=== PATIENT | male | born 1995 | race Caucasian/White ===

== ENCOUNTER → 2017-07-28 | Outpatient (CLI) | payer OTHER | LOC: LAB 14:49 | PROVIDERS: ATTEND Internal Medicine | DX: R19.7 Diarrhea, unspecified (principal); R63.4 Abnormal weight loss | CPT/HCPCS: 87045; 87046; 87324; 87328; 87329; 87449 ==

== ENCOUNTER 2017-08-23 09:15 | Outpatient (CLI) | payer OTHER ==
[~2017-08-23] VITALS: Ht 177.8 cm; Wt 59.0 kg
[2017-08-23] MEDS ORDERED: METO-387 PO (09:37)
== END 2017-08-23 09:44 ==
LOC: PREOP 09:15
PROVIDERS: ATTEND Internal Medicine
DX: Z01.818 Encounter for other preprocedural examination (principal); R19.7 Diarrhea, unspecified; R63.4 Abnormal weight loss; K62.5 Hemorrhage of anus and rectum

== ENCOUNTER 2017-08-24 09:01 | Day surgery (SDC) | payer OTHER ==
[~2017-08-24] VITALS: Ht 177.8 cm; Wt 59.0 kg
[~2017-08-24 09:01] MED LIST: METO-387 PO
[2017-08-24] MEDS ORDERED: 1/2 NS IV SOLUTION 1,000 ML IV STA (09:07)
[2017-08-24] MEDS ORDERED: MIDAZOLAM 2 MG/2 ML (VERSED) VIAL IVP PRN (09:15)
[2017-08-24] MEDS ORDERED: LIDOCAINE JELLY 2% (XYLOCAINE) 5 ML TUBE MM PRN (09:15)
[2017-08-24 09:22] VITALS: BP 115/94
[2017-08-24] MEDS ORDERED: LIDOCAINE JELLY 2% (XYLOCAINE) 5 ML TUBE ONE (10:26)
[2017-08-24] MEDS ORDERED: MIDAZOLAM 2 MG/2 ML (VERSED) VIAL ONE ×4 (10:27)
[2017-08-24] MEDS ORDERED: fentaNYL INJECTION 100 MCG/2 ML AMP ONE ×2 (10:27)
[2017-08-24] MEDS: fentaNYL INJECTION 100 MCG/2 ML AMP IVP PRN ×3 (10:52→11:08)
[2017-08-24 12:00] VITALS: BP 115/72
[2017-08-24 12:40] VITALS: BP 114/74
[2017-08-24 12:50] VITALS: BP 114/74
--- NOTE | 2017-08-24 21:47 | OPERATIVE REPORT ---
DATE OF SERVICE: 08/24/2017 COLONOSCOPY SUMMARY INDICATION FOR THE PROCEDURE: Diarrhea, weight loss and intermittent rectal bleeding. Prior to undergoing colonoscopy, a digital rectal evaluation was performed. Anal sphincter tone was normal and the perianal reflexes intact. The prostate was just borderline enlarged not for age with mild tenderness to digital inspection. No nodularity was noted. Digital inspection was otherwise unremarkable with normal consistency. The colonoscope was then inserted in the rectum under direct visualization and advanced to the cecum. The terminal ileum was intubated and distal several centimeters of terminal ileum were inspected. The patient tolerated the procedure well and did not have an irritable bowel type response to air insufflation or colonic manipulation. FINDINGS: The rectum, sigmoid colon, descending colon, splenic flexure, transverse colon, ascending colon and cecum as well as distal several centimeters of terminal ileum were unremarkable with no evidence for colitis or terminal ileitis. ASSESSMENT AND PLAN: 1. Normal colonoscopy of the cecum including distal terminal ileum. 2. This likely Excludes underlying inflammatory bowel disease. A biopsy was obtained from the rectum to rule out microscopic colitis. After discussion with the patient, I will be sending him down to [facility] to obtain a celiac panel as there was apparently some family history of celiac disease. In addition check HIV status. He reports that he is sexually active, denying any past or ongoing history of sex with men. In the interim, it was advised that he initiate fiber in the form of Citrucel or FiberCon daily. I thank you for the referral of this pleasant gentleman. Job ID: [id number] DocumentID: [id number] Dictated Date: 08/24/2017 12:27:31 Passenger Locomotive Engineer Date: 08/24/2017 21:46:51 Dictated By: RUPAL MENARD MD [facility]
== END 2017-08-24 12:50 | disposition home or self-care (01) ==
LOC: ENDO 09:01
PROVIDERS: ATTEND Internal Medicine
DX: R19.7 Diarrhea, unspecified (principal); K62.5 Hemorrhage of anus and rectum; R63.4 Abnormal weight loss; Z83.79 Family history of other diseases of the digestive system; R00.0 Tachycardia, unspecified; Z79.899 Other long term (current) drug therapy

== ENCOUNTER 2018-08-12 09:19 | Outpatient (RCR) | payer BC, OTHER ==
[2018-08-19] MEDS ORDERED: TR1C15 TP (07:36)
[2018-10-18] MEDS ORDERED: METO-387 PO (07:22)
== END 2018-11-10 | disposition home or self-care (01) ==
LOC: CARD 09:19
PROVIDERS: ATTEND Internal Medicine Interventional Cardiology
DX: I49.1 Atrial premature depolarization (principal); I47.1 Supraventricular tachycardia; I49.3 Ventricular premature depolarization
CPT/HCPCS: 93270

== ENCOUNTER 2018-08-14 05:35 | Outpatient (CLI) | payer BC ==
[~2018-08-14] VITALS: Ht 177.8 cm; Wt 60.3 kg
== END 2018-08-14 13:39 | disposition home or self-care (01) ==
LOC: PREOP 05:35
PROVIDERS: ATTEND Internal Medicine Interventional Cardiology
DX: Z01.818 Encounter for other preprocedural examination (principal)

== ENCOUNTER 2018-08-19 07:10 | Day surgery (SDC) | payer BC, OTHER ==
[~2018-08-19] VITALS: Ht 177.8 cm; Wt 59.0 kg
[2018-08-19] VITALS (12 sets, daily range): BP systolic 112–145; BP diastolic 61–92
[2018-08-19] MEDS ORDERED: NS IV 1000 ML 1,000 ML IV SCH ×2 (07:13→10:47)
[2018-08-19] MEDS ORDERED: NS IV 1000 ML 3,000 ML ONE (07:13)
[2018-08-19] MEDS ORDERED: LIDOCAINE 1% INJ 20 ML 20 ML VIAL ONE (07:13)
[2018-08-19] MEDS ORDERED: HEParin 1000 UNIT/ML (10ML VIAL) FOR BOLUS ONE (07:13)
--- OUTSIDE RECORDS SUMMARY | 2018-08-19 07:14 | XMS REPORT | Continuity of Care Document ---
Author Author [facility] Address [facility] [address] [place] [address] Phone Unavailable Support Name Relationship Address Phone VELMA POWERS Caregiver [address] [address] ERNESTINE MANSFIELD DO Caregiver [address] [place], [place] [address] RIGOBERTO GUZMAN Next Of Kin [address] [place] [address] Insurance Providers Payer Name Policy Number Subscriber Name Relationship Wc Other [id number] Kelsie Do 16 Self / Same As Patient Blue Cross/Blue Shield [id number] Nayely Guzman 17 Child Advance Directives Directive Response Recorded Date/Time Do you have an Advanced Directive? No 01/03/00 7:20pm Advance Directives No 01/03/12 10:52am Living Will No 01/03/12 10:52am Health Care Proxy No 11/30/15 11:04am Power of Green Chain Off Bearer for Health Care No 01/03/12 10:52am Organ, Tissue, or Eye Donor No 01/03/12 10:52am Do you have a signed organ donor card? No 01/03/00 7:20pm Problems Active Problems Medical Problem Onset Date Status Scalp laceration Unknown Acute Ureterolithiasis Unknown Acute Medications Current Home Medications Medication Dose Units Route Directions Days/Qty Instructions Start Date No Known Medications 08/10/14 Oxycodone Hcl/Acetaminophen* 1 Tab 1 Ea Oral Every 4-6 Hrs As Needed Pain 20 08/10/14 Ondansetron* 4 Mg/Tab 4 Mg Oral Every 6 Hours for Nausea 10 08/10/14 Ibuprofen 600 Mg 600 Mg Oral Every 8 Hours As Needed as needed for Pain 10 08/10/14 Social History Social History Problem Response Recorded Date/Time Smoking Status Never smoker 11/23/2015 1:53pm Query Response Start Date Stop Date Smoking Status Never smoker Hospital Discharge Instructions No hospital discharge instructions. Plan of Care Discharge Date 11/30/15 11:25am Disposition 01 HOME, CARE HOME,ASSISTED LIVING Prescriptions See Medication Section Functional Status No functional status results. Allergies, Adverse Reactions, Alerts Allergen Type Severity Reaction Status Last Updated SULFA Allergy Unknown Active 08/10/14 Immunizations Name Given Type Hx Diphtheria, Pertussis, Tetanus Vaccination Up To Date Historical Hx Influenza Vaccination No Historical Hx Pneumococcal Vaccination No Historical Vital Signs Acute Vital Signs Vital Response Date/Time Temperature (Fahrenheit) 98.3 degrees F (97.6 - 99.5) 11/30/2015 11:12am Temperature Source Temporal Artery 11/30/2015 11:12am Pulse Rate (adult) 74 bpm (60 - 90) 11/30/2015 11:12am Respiratory Rate 16 bpm (12 - 24) 11/30/2015 11:12am Blood Pressure 121/70 mm Hg 11/30/2015 11:12am O2 Sat by Pulse Oximetry 96 % (90 - 100) 11/30/2015 11:12am Oxygen Delivery Method 11/30/2015 11:12am Results No known relevant diagnostic tests, laboratory data and/or discharge summary. Procedures No known history of procedures. Encounters Encounter Location Arrival/Admit Date Discharge/Depart Date Attending Provider Departed Emergency Room [place] 11/30/15 11:09am 11/30/15 11:25am ERNESTINE MANSFIELD DO Departed Emergency Room [place] 11/23/15 1:35pm 11/23/15 2:21pm LIZBETH FISHER MD
--- OUTSIDE RECORDS SUMMARY | 2018-08-19 07:14 | XMS REPORT | Continuity of Care Document ---
Author Author [facility] Address [facility] [address] [place] [address] Phone Unavailable Support Name Relationship Address Phone HAIJOHNVELMA Caregiver [address] [address] LIZBETH FISHER MD Caregiver [address] [place] [address] Unavailable RIGOBERTO GUZMAN Next Of Kin [address] [place] [address] Insurance Providers Payer Name Policy Number Subscriber Name Relationship Wc Other [id number] Kelsie Do 16 Self / Same As Patient Blue Cross/Blue Shield [id number] Nayely Guzman 17 Child Advance Directives Directive Response Recorded Date/Time Do you have an Advanced Directive? No 01/03/00 7:20pm Advance Directives No 01/03/12 10:52am Living Will No 01/03/12 10:52am Health Care Proxy No 11/23/15 1:34pm Power of Beef Specialist for Health Care No 01/03/12 10:52am Organ, Tissue, or Eye Donor No 01/03/12 10:52am Do you have a signed organ donor card? No 01/03/00 7:20pm Chief Complaint and Reason for Visit Chief Complaint HIT IN HEAD/HIT HEAD Reason for Visit Scalp laceration Problems Active Problems Medical Problem Onset Date [...] Date/Time Smoking Status Never smoker 11/23/2015 1:53pm Alcohol Use none 11/23/2015 1:53pm Query Response Start Date Stop Date Smoking Status Never smoker Hospital Discharge Instructions No hospital discharge instructions. Plan of Care Discharge Date 11/23/15 2:21pm Condition at Discharge Stable Instructions/Education Provided Laceration (ED) Head Injury (ED) Prescriptions See Medication Section Referrals VELMA POWERS - Additional Instructions/Education Casey out in about 7 days Functional Status Query Response Date Recorded Vivek Coma Scale Total 15 November 23, 2015 2:20pm Patient Behavior Cooperative Appropriate November 23, 2015 2:20pm Allergies, Adverse Reactions, Alerts Allergen Type Severity Reaction Status Last Updated SULFA Allergy Unknown Active 08/10/14 Immunizations Name Given Type Hx Diphtheria, Pertussis, Tetanus Vaccination Up To Date Historical Hx Influenza Vaccination No Historical Hx Pneumococcal Vaccination No Historical Vital Signs Acute Vital Signs Vital Response Date/Time Temperature (Fahrenheit) 98.5 degrees F (97.6 - 99.5) 11/23/2015 2:11pm Temperature Source Temporal Artery 11/23/2015 2:11pm Pulse Rate (adult) 68 bpm (60 - 90) 11/23/2015 2:11pm Respiratory Rate 18 bpm (12 - 24) 11/23/2015 2:11pm Blood Pressure 130/70 mm Hg 11/23/2015 2:11pm O2 Sat by Pulse Oximetry 97 % (90 - 100) 11/23/2015 2:11pm Oxygen Delivery Method 11/23/2015 2:11pm Height 5 ft 10 in Weight 141 lb Body Mass Index 20.0 kg/m^2 Results No known relevant diagnostic tests, laboratory data and/or discharge summary. Procedures No known history of procedures. Encounters Encounter Location Arrival/Admit Date Discharge/Depart Date Attending Provider Departed Emergency Room [facility] 11/23/15 1:35pm 11/23/15 2:21pm LIZBETH FISHER MD Recent Diagnosis
--- OUTSIDE RECORDS SUMMARY | 2018-08-19 07:14 | XMS REPORT | Continuity of Care Document ---
Author Author [facility] Organization [facility] Address [facility] [address] [place] [address] Phone Unavailable Support Name Relationship Address Phone HAIJOHNVELMA Caregiver [address] [place] [address] BLAIRE WHITFIELD MD Caregiver [address] [place] [address] RIGOBERTO GUZMAN Next Of Kin [address] [place] [address] Insurance Providers Payer Name Policy Number Subscriber Name Relationship Blue Cross/Blue Shield [id number] Nayely Guzman 17 Child Advance Directives Directive Response Recorded Date/Time Do you have an Advanced Directive? No 01/03/00 7:20pm Advance Directives No 01/03/12 10:52am Living Will No 01/03/12 10:52am Health Care Proxy No 08/10/14 11:14am Power of Photovoltaic Fabrication Technician for Health Care No 01/03/12 10:52am Organ, Tissue, or Eye Donor No 01/03/12 10:52am Do you have a signed organ donor card? No 01/03/00 7:20pm Problems Medical Problems Problem Onset Date Status Ureterolithiasis Unknown Active Medications Medication Dose Route Sig Days/Qty Instructions Order Date Discontinued Date Status No Known Medications 08/10/14 Active Oxycodone Hcl/Acetaminophen* 1 Ea PO EVERY 4-6 HRS NEEDED PAIN 20 Qty 08/10/14 Active Ondansetron* 4 Mg PO EVERY 6 HOURS For NAUSEA 10 Qty 08/10/14 Active Ibuprofen 600 Mg PO EVERY 8 HOURS NEEDED PRN PAIN 10 Qty 08/10/14 Active Social History Social History Problem Response Recorded Date/Time Employment Student 08/10/2014 11:52am Hospital Discharge Instructions No hospital discharge instructions. Plan of Care No plan of care. Functional Status Query Response Date Recorded [place] Coma Scale Total 15 August 10, 2014 11:15am Patient Behavior Cooperative Appropriate August 10, 2014 11:15am Allergies, Adverse Reactions, Alerts Allergen Type Severity Reaction Status Last Updated SULFA Allergy Unknown Active 08/10/14 Immunizations Name Given Type Hx Diphtheria, Pertussis, Tetanus Vaccination Up To Date Historical Hx Influenza Vaccination No Historical Hx Pneumococcal Vaccination No Historical Vital Signs Acute Vital Signs Vital Response Date/Time Temperature (Fahrenheit) 99.3 degrees F (97.6 - 99.5) Temperature Source Temporal Artery Pulse Rate (adult) 74 bpm (60 - 90) Respiratory Rate 20 bpm (12 - 24) Blood Pressure 114/64 mm Hg O2 Sat by Pulse Oximetry 96 % (90 - 100) Oxygen Delivery Method Pain Intensity 1 Pain Location Body Site Modifier Pain Description Pain Duration 2 DAYS Height 5 ft 9 in Weight 143 lb Body Mass Index 21.0 kg/m^2 Results Test Source Date Result Interp. Ref. Range Comments Urine Bacteria August 10, 2014 12:00am Trace H - Urine obtained via URINE,RANDOM Urine Squamous Epithelial Cells August 10, 2014 12:00am 0-1 /hpf H - Urine obtained via URINE,[facility]OM Urine WBC August 10, 2014 12:00am 1-2 /hpf - Urine obtained via URINE, [facility] Urine RBC August 10, 2014 12:00am 30-49 /hpf H - Urine obtained via URINE,[facility] Urine Leukocyte Esterase August 10, 2014 12:00am Negative - Urine obtained via URINE,[facility]OM Urine Nitrate August 10, 2014 12:00am Negative - Urine obtained via URINE,[facility]OM Urine Urobilinogen August 10, 2014 12:00am 0.2 mg/dl E.U./dL - Urine obtained via URINE,[facility] Urine Protein August 10, 2014 12:00am Negative mg/dL - Urine obtained via URINE,[facility] Urine pH August 10, 2014 12:00am 6.0 - Urine obtained via URINE,[facility]OM Urine Occult Blood August 10, 2014 12:00am 3+ (large) H - URINE CULTURE ORDERED PER MEDICAL STAFF-APPROVED PROTOCOLFOR LAB. Urine Specific [place] August 10, 2014 12:00am 1.025 N 1.010-1.025 Urine obtained via URINE,[facility]OM Urine Ketones August 10, 2014 12:00am Negative mg/dL - Urine obtained via URINE,[facility]OM Urine Bilirubin August 10, 2014 12:00am Negative - Urine obtained via URINE,[facility]OM Urine Glucose (UA) August 10, 2014 12:00am Negative mg/dL - Urine obtained via URINE,[facility] Urine Appearance August 10, 2014 12:00am Clear - Urine obtained via URINE,[facility] Urine Color August 10, 2014 12:00am Yellow - Urine obtained via URINE, [facility] Vitamin B12 Level August 01, 2014 1:40pm 659 pg/mL - Performed at: [address] [id number] [place] Registered Nurse Rn: PLACIDO Santiago MD, Phone: [phone] Thyroid Stimulating Immunoglobulin August 01, 2014 1:40pm 21 - Vitamin D 25-Hydroxy August 01, 2014 1:40pm 28.5 ng/mL L - Vitamin D deficiency has been defined by the [place] of[employer] and an Endocrine Society practice guideline as a level of serum 25-OH vitamin D less than 20 ng/mL (1,2). The Endocrine Society went on to further define vitamin D insufficiency as a level between 21 and 29 ng/mL (2). 1. IOM ([place] of [employer]). 2010. Dietary reference intakes for calcium and D. [place]: The National Academies Press. 2. Oumar MF, Crescencio PETER, Abigail UGARTE, et al. Evaluation, treatment, and prevention of vitamin D deficiency: an Endocrine Society clinical practice guideline. JCEM. 2010; 96(7):1911-30. Performed at: [address] [id number] [place] Registered Nurse Rn: PLACIDO Santiago MD, Phone: [phone] Thyroid Peroxidase Antibodies August 01, 2014 1:40pm 6 IU/mL - Performed at: [place] [address], [place], [place] [id number] [facility] Registered Nurse Rn: PLACIDO Santiago MD, Phone: [phone] Atypical Lymphocytes August 01, 2014 1:40pm 2 % H 0-0 Basophils (Manual) August 01, 2014 1:40pm 1.0 % N 0-1 Eosinophils (Manual) August 01, 2014 1:40pm 5.0 % H 0-3 Monocytes (Manual) August 01, 2014 1:40pm 9.0 % N 4-10 Lymphocytes (Manual) August 01, 2014 1:40pm 30.0 % N 25-40 Band Neutrophils August 01, 2014 1:40pm 4.0 % N 0-5 Neutrophils August 01, 2014 1:40pm 49.0 % L 50-65 Glomerular Filtration Rate Calc August 01, 2014 1:40pm 101.3 mL/min N 60.0-128.0 Thyroid Stimulating Hormone (TSH) August 01, 2014 1:40pm 1.39 uIU/ml N 0.36-3.74 Thyroxine (T4) August 01, 2014 1:40pm 7.2 UG/DL N 4.5-12.1 Triiodothyronine (T3) Uptake August 01, 2014 1:40pm 33.0 % N 33.0- 40.0 Free Thyroxine (T4) Calculated August 01, 2014 1:40pm 0.99 ng/dL N 0.76-1.46 Total Alkaline Phosphatase August 01, 2014 1:40pm 105 U/L N 50-136 Alanine Aminotransferase (ALT/SGPT) August 01, 2014 1:40pm 20 U/L N 12 -78 Aspartate Amino Transf (AST/SGOT) August 01, 2014 1:40pm 10 U/L L 15- 37 Total Bilirubin August 01, 2014 1:40pm 0.50 mg/dL N 0.00-1.00 Albumin August 01, 2014 1:40pm 4.2 gm/dL N 3.4-5.0 Total Protein August 01, 2014 1:40pm 7.3 gm/dL N 6.4-8.2 Calcium Level August 01, 2014 1:40pm 8.9 mg/dL N 8.8-10.5 Carbon Dioxide Level August 01, 2014 1:40pm 31.7 mEq/L N 21-32 Chloride Level August 01, 2014 1:40pm 103 mEq/L N 98-107 Potassium Level August 01, 2014 1:40pm 4.3 mEq/L N 3.5-5.0 Sodium Level August 01, 2014 1:40pm 141 mEq/L N 136-145 Creatinine August 01, 2014 1:40pm 1.0 mg/dL N 0.8-1.3 Blood Urea Nitrogen August 01, 2014 1:40pm 10 mg/dL N 7-18 Random Glucose August 01, 2014 1:40pm 87 mg/dL N 70-110 Monoscreen August 01, 2014 1:40pm Negative - Basophils # (Auto) August 01, 2014 1:40pm 0.0 K/uL N 0.0-0.2 Basophils (%) (Auto) August 01, 2014 1:40pm 1.1 % H 0.0-1.0 Eosinophils # (Auto) August 01, 2014 1:40pm 0.2 K/uL N 0.0-0.7 Eosinophils (%) (Auto) August 01, 2014 1:40pm 4.1 % H 0.0-2.0 Hematocrit August 01, 2014 1:40pm 48.3 % N 42.0-52.0 Hemoglobin August 01, 2014 1:40pm 15.7 gm/dL N 14.0-18.0 Lymphocytes # (Auto) August 01, 2014 1:40pm 1.2 K/uL N 1.2-3.4 Lymphocytes (%) (Auto) August 01, 2014 1:40pm 33.5 % N 20.5-51.1 Mean Corpuscular Hemoglobin August 01, 2014 1:40pm 27.4 pg N 27.0- 31.0 Mean Corpuscular Hemoglobin Concent August 01, 2014 1:40pm 32.5 g/dL N 30.0-37.0 Mean Corpuscular Volume August 01, 2014 1:40pm 84.3 fL N 80.0-96.1 Mean Platelet Volume August 01, 2014 1:40pm 7.4 fL N 7.4-10.4 Monocytes # (Auto) August 01, 2014 1:40pm 0.3 K/uL N 0.1-0.6 Monocytes (%) (Auto) August 01, 2014 1:40pm 7.9 % N 1.7-9.3 Neutrophils # (Auto) August 01, 2014 1:40pm 2.0 K/uL N 2.0-6.9 Neutrophils (%) (Auto) August 01, 2014 1:40pm 53.3 % N 42.2-75.2 Platelet Count August 01, 2014 1:40pm 225 K/uL N 130-400 Red Blood Count August 01, 2014 1:40pm 5.73 M/uL N 4.70-6.10 Red Cell Distribution Width August 01, 2014 1:40pm 10.4 % L 11.5-14.5 White Blood Count August 01, 2014 1:40pm 3.7 K/uL L 4.8-10.8 Urine Culture Urine,Random August 10, 2014 12:00am Pending Procedures Procedure Status Date Provider(s) Computed tomography of abdomen and pelvis without contrast completed BLAIRE WHITFIELD MD Encounters Encounter Location Date/Time Departed Emergency Room [facility] 08/10/14 11:14am Registered Clinic [facility] 08/01/14 1:33pm Recent Diagnosis
[2018-08-19] MEDS ORDERED: ISOPROTERENOL 0.2 MG/100 ML D5W IV ONE (07:15)
--- OUTSIDE RECORDS SUMMARY | 2018-08-19 07:15 | XMS REPORT | Continuity of Care Document ---
Author Author [facility] Organization [facility] Address Unknown Phone Unavailable Allergies Active Description Code Type Severity Reaction Onset Reported/Identified Relationship to Patient Clinical Status Yes Sulfa (Sulfonamide Antibiotics) [id number] Drug Allergy Unknown N/A 2017 Medications There is no data. Problems Date Dx Coded Attending Type Code Diagnosis Diagnosed By 05/12/2015 LUKE NAGEL MD Ot I49.9 07/09/2015 MIKHAIL BOWLING SHAREPOINT DEVELOPER-STDNT Ot R00.0 08/18/2015 LUKE NAGEL MD Ot I49.9 08/18/2015 MIKHAIL BOWLING SHAREPOINT DEVELOPER-STDNT Ot R00.0 08/31/2015 LUKE NAGEL MD Ot I49.9 08/31/2015 MIKHAIL BOWLING SHAREPOINT DEVELOPER-STDNT Ot R00.0 07/30/2017 LUKE NAGEL MD Ot R19.7 DIARRHEA, UNSPECIFIED 07/30/2017 LUKE NAGEL MD Ot R63.4 ABNORMAL WEIGHT LOSS 08/15/2017 LUKE NAGEL MD Ot R19.7 DIARRHEA, UNSPECIFIED 08/15/2017 LUKE NAGEL MD Ot R63.4 ABNORMAL WEIGHT LOSS 08/23/2017 RUPAL MENARD MD Ot K62.5 HEMORRHAGE OF ANUS AND RECTUM 08/23/2017 RUPAL MENARD MD Ot R19.7 DIARRHEA, UNSPECIFIED 08/23/2017 RUPAL MENARD MD Ot R63.4 ABNORMAL WEIGHT LOSS 08/23/2017 RUPAL MENARD MD Ot Z01.818 ENCOUNTER FOR OTHER PREPROCEDURAL EXAMIN 08/24/2017 RUPAL MENARD MD Ot K62.5 HEMORRHAGE OF ANUS AND RECTUM 08/24/2017 RUPAL MENARD MD Ot R00.0 TACHYCARDIA, UNSPECIFIED 08/24/2017 RUPAL MENARD MD Ot R19.7 DIARRHEA, UNSPECIFIED 08/24/2017 RUPAL MENARD MD Ot R63.4 ABNORMAL WEIGHT LOSS 08/24/2017 RUPAL MENARD MD Ot Z79.899 OTHER [facility] (CURRENT) DRUG THERAPY 08/24/2017 RUPAL MENARD MD Ot Z83.79 FAMILY HISTORY OF OTHER DISEASES OF THE 08/28/2017 RUPAL MENARD MD Ot K62.5 HEMORRHAGE OF ANUS AND RECTUM 08/28/2017 RUPAL MENARD MD Ot R00.0 TACHYCARDIA, UNSPECIFIED 08/28/2017 RUPAL MENARD MD Ot R19.7 DIARRHEA, UNSPECIFIED 08/28/2017 RUPAL MENARD MD Ot R63.4 ABNORMAL WEIGHT LOSS 08/28/2017 RUPAL MENARD MD Ot Z79.899 OTHER [employer] (CURRENT) DRUG THERAPY 08/28/2017 RUPAL MENARD MD Ot Z83.79 FAMILY HISTORY OF OTHER DISEASES OF THE 08/29/2017 RUPAL MENARD MD Ot K62.5 HEMORRHAGE OF ANUS AND RECTUM 08/29/2017 RUPAL MENARD MD Ot R19.7 DIARRHEA, UNSPECIFIED 08/29/2017 RUPAL MENARD MD Ot R63.4 ABNORMAL WEIGHT LOSS 08/29/2017 RUPAL MENARD MD Ot Z01.818 ENCOUNTER FOR OTHER PREPROCEDURAL EXAMIN 09/12/2017 RUPAL MENARD MD Ot K62.5 HEMORRHAGE OF ANUS AND RECTUM 09/12/2017 RUPAL MENARD MD Ot R00.0 TACHYCARDIA, UNSPECIFIED 09/12/2017 RUPAL MENARD MD Ot R19.7 DIARRHEA, UNSPECIFIED 09/12/2017 RUPAL MENARD MD Ot R63.4 ABNORMAL WEIGHT LOSS 09/12/2017 RUPLA MENARD MD Ot Z79.899 OTHER [facility] (CURRENT) DRUG THERAPY 09/12/2017 RUPAL MENARD MD Ot Z83.79 FAMILY HISTORY OF OTHER DISEASES OF THE 08/09/2018 SHONA GRACIA, LUKE Jaramillo Ot I49.9 CARDIAC ARRHYTHMIA, UNSPECIFIED 08/09/2018 MIKHAIL BOWLING SHAREPOINT DEVELOPER-STDNT Ot R00.0 TACHYCARDIA, UNSPECIFIED 08/14/2018 Ella GAO MD Ot Z01.818 ENCOUNTER FOR OTHER PREPROCEDURAL EXAMIN 08/15/2018 Ella GAO MD Ot Z01.818 ENCOUNTER FOR OTHER PREPROCEDURAL EXAMIN Procedures There is no data. Results There is no data. Encounters ACCT No. Visit Date/Time Discharge Status Pt. Type Provider Facility Loc./Unit Complaint [id number] 08/14/2018 05:35:00 08/14/2018 13:39:00 DIS Outpatient Ella GAO MD [facility] PREOP SYMPTOMATIC PSVT [id number] 08/12/2018 09:19:00 08/12/2018 23:59:59 CLS Outpatient Ella GAO MD [facility] CARD PAC [id number] 08/24/2017 09:01:00 08/24/2017 12:50:00 DIS Outpatient RUPAL MENARD MD [facility] ENDO DIARRHEA/WEIGHT LOSS/ RECTAL BLEEDING [id number] 08/23/2017 09:15:00 08/23/2017 09:44:00 DIS Outpatient RUPAL MENARD MD [facility] PREOP COLONOSCOPY [id number] 07/28/2017 14:49:00 07/28/2017 23:59:59 CLS Outpatient LUKE NAGEL MD [facility] LAB DIARRHEA [id number] 06/22/2015 11:35:00 06/22/2015 23:59:59 CLS Outpatient MIKHAIL BOWLING SHAREPOINT DEVELOPER-STDNT [facility] RAD TACHACARDIA [id number] 04/22/2015 08:01:00 04/22/2015 23:59:59 CLS Outpatient LUKE NAGEL MD [facility] CARD CARDIAC ARRHYTHMIA [id number] 08/19/2018 08:00:00 PEN Preadmit Ella GAO MD [facility] CATH SYMPTOMATIC PSVT [id number] 02/23/2014 11:23:26 Document Registration
[2018-08-19] MEDS ORDERED: proPOfol 200 MG/20 ML (DIPRIVAN) VIAL IV ONE (07:30)
[2018-08-19] MEDS ORDERED: ONDANSETRON 4 MG/2 ML (SDV) Z0FRAN ONE (07:30)
[2018-08-19] MEDS ORDERED: fentaNYL INJECTION 100 MCG/2 ML AMP ONE (07:30)
[2018-08-19] MEDS ORDERED: MIDAZOLAM 2 MG/2 ML (VERSED) VIAL ONE (07:30)
[2018-08-19 07:36] LABS: HEMOGLOBIN 15.3 G/DL (13.3-17.7); MEAN PLATELET VOLUME 9.7 FL (7.4-10.4); RED CELL DISTRIBUTION WIDTH 13.3 % (10.0-14.5); WHITE BLOOD COUNT 5.7 10^3/uL (4.3-11.0)
[2018-08-19] MEDS ORDERED: TR1C15 TP (07:36)
[2018-08-19 07:54] LABS: PROTHROMBIN TIME PATIENT 13.3 SEC (12.2-14.7)
[2018-08-19 07:59] LABS: ALANINE AMINOTRANSFERASE 12 U/L (0-55); ALBUMIN 4.8 GM/DL (3.2-4.5); ALKALINE PHOSPHATASE 55 U/L (40-136); BUN/CREATININE RATIO 9; CALCIUM 9.4 MG/DL (8.5-10.1); CARBON DIOXIDE 25 MMOL/L (21-32); CHLORIDE 104 MMOL/L (98-107); CREATININE SERUM 0.85 MG/DL (0.60-1.30); GFR ESTIMATED > 60; GLUCOSE 86 MG/DL (70-105); POTASSIUM 3.5 MMOL/L (3.6-5.0); SODIUM 140 MMOL/L (135-145); TOTAL PROTEIN 6.9 GM/DL (6.4-8.2)
[2018-08-19] MEDS ORDERED: FLU QUADRIvalent (5+ YOA) 2018-2019 (AFLURIA) 0.5 ML IM ONE (08:15)
[2018-08-19] MEDS ORDERED: SEVOFLURANE (ULTANE) 15 ML INHAL SOLN ONE (10:37)
--- NOTE | 2018-08-19 10:47 | Cardiac Procedure Note-CS/ASA ---
Pre-Procedure Note Pre-Op Procedure Note H&P Reviewed The H&P was reviewed, patient examined and no changes noted. Date H&P Reviewed: Aug 19, 2018 Time H&P Reviewed: 08:15 Conscious Sedation Pre-Proced Time 08:15 ASA Score 3 For ASA 3 and 4: Consider anesthesia and medical clearance. Also, for patients with a history of failed moderate sedation consider anesthesia. Airway Lungs Heart ASA score ASA 1: a normal healthy patient ASA 2: a patient with a mild systemic disease (mid diabetes, controlled hypertension, obesity ASA 3: a patient with a severe systemic disease that limits activity (angina , COPD, prior Myocardial infarction) ASA 4: a patient with an incapacitating disease that is a constant threat to life (CHF, renal failure) ASA 5: a moribund patient not expected to survive 24 hrs. (ruptured aneurysm) ASA 6: a declared brain- patient whose organs are being harvested. For emergent operations, add the letter E after the classification Mallampati Classification Grade 1 Sedation Plan Analgesia, Amnesia, Plan communicated to team members, Discussed options with patient/fam, Discussed risks with patient/fam The patient is an appropriate candidate to undergo the planned procedure, sedation, and anesthesia. The patient immediately re-assessed prior to indication. Ella GAO MD Aug 19, 2018 10:47
--- NOTE | 2018-08-19 10:47 | Electrophysiology Procedure ---
EP Procedure DATE OF SERVICE:08/19/18 CARDIAC FOREIGN LANGUAGE PROFESSOR: David Brunner MD, RANGEL, CCDS. INDICATION: PSVT PREOPERATIVE DIAGNOSIS: PSVT POSTOPERATIVE DIAGNOSES: Non-inducible Tachycardia. HISTORY: 22 year old male with symptomatic narrow complex tachycardia. The patient is planned for comprehensive EP study and ablation. PROCEDURE PERFORMED: 1. Comprehensive EP study. 2. Fluoroscopy. 3. CS pacing. 4. Drug infusion. COMPLICATION: None. ESTIMATED BLOOD LOSS: 10 mL. CONTRAST USED: None. FLUOROSCOPY TIME: 11.6 minutes FLUOROSCOPY DOSE: 44 mgy. SPECIMENS: None. ANESTHESIA: Done by our anesthesia colleagues. ANTICOAGULATION: None PROCEDURE IN DETAIL: After informed consent was taken, the patient was brought to the EP lab. Anesthesia was provided by our anesthesia colleagues. The patient was draped and prepped in the usual sterile fashion. The patient presented to the EP lab in sinus rhythm. Access was gained in the right femoral vein with a 6-Brazilian and an 8-Brazilian sheath. Left access in left femoral vein was gained with 5-Brazilian and 6-Brazilian sheath respectively. High right atrial catheter was an Jeannette catheter, right ventricular catheter was placed, his catheter and the CS catheter were also placed. A comprehensive EP study was done including a CS pacing. Dual AV irving physiology was demonstrated. Single AV irving Echos was demonstrated consistently on Isuprel infusion, however, no double echos or inducible tachycardia.The patienttolerated the procedure well and did not have any complication. The patientleft the lab in sinus rhythm. MEASUREMENTS/EP STUDY: AA interval 813 ms, AH interval 53 ms, HV interval 49 ms, NV interval 144 ms, QRS duration 39 ms, QT interval 261 ms, R-R interval 813 ms, AV Wenckebach at pacing cycle length 370 ms, retrograde Wenckebach at pacing cycle length 230 ms, Fast pathway ERP 600/350 ms, Slow pathway ERP 600/240 ms, Ventricular ERP 600/240 ms, Atrial ERP 500/200 ms. PLAN: The patient will be observed for 4 hours and will be discharged home today with precise followup instructions. David Brunner MD, RANGEL, CCDS Cardiac Electrophysiology Ella BRUNNER MD Aug 19, 2018 10:47
[2018-08-19] MEDS ORDERED: PATIENT MAY USE OWN MEDS, ALL PO SCH (11:00)
--- NOTE | 2018-08-19 11:05 | Discharge Inst-Post CATH ---
Discharge Inst-CATH/EP Post Cardiac Cath/EP D/C Inst Follow Up/Plan Dr Brunner in one to two weeks. CARDIAC CATH DISCHARGE INSTRUCTIONS *Hold Metformin for 48 hours post heart cath. ACTIVITY * Go Home directly and rest. * Limit activity of the leg (or wrist if it was used) for 7 days including aerobics, swimming, jogging, bicycling, etc. * Restrict stair-climbing for 7 days if possible, if not, climb up with your non -cath leg, then bring together on the same step. * Avoid lifting, pushing, pulling or excessive movement of the affected extremity for 7 days. * Customary sexual activity may be resumed after 2 days-use caution not to use a position that strains or causes pain to the affected extremity. * No driving for 24 hours. * NO SMOKING. * Avoid straining for bowel movements for 7 days. * Gentle walking on level ground is allowed. * Returning to work will depend on the type of procedure and the results. Your doctor will discuss this with you. CALL YOUR DOCTOR FOR ANY OF THE FOLLOWING: *If bleeding from the puncture site occurs- Apply gentle pressure to site with clean cloth and call your doctor or EMS. * If a knot or lump forms under the skin, increases in size, or causes pain. * If bruising appears to be worsening or moving further down your leg instead of disappearing. * Temperature above 101 F. CARE OF YOUR GROIN INCISION; * Bruising or purple discoloration of the skin near the puncture site is common. * You may shower only, no bathtub bathing for 5 days. Be careful to avoid slipping as your leg may feel stiff. * If a closure device was used on your femoral artery, please see the attached guide regarding care of the device and your leg. * Leave the dressing on, until removed by office staff. CARE OF YOUR WRIST INCISION; * Bruising or purple discoloration of the skin near the puncture site is common. * You may shower. * DO NOT submerge wrist. * Leave dressing on, until removed by office staff.. Ella BRUNNER MD Aug 19, 2018 11:05
[2018-08-19] MEDS ORDERED: ONDANSETRON 4 MG/2 ML (SDV) Z0FRAN IVP PRN (11:15)
[2018-08-19] MEDS ORDERED: MEPERIDINE (DEMEROL) INJ 50 MG/ML IVP ONE (11:15)
[2018-08-19] MEDS ORDERED: morphine INJ 10 MG/ML 1ML (SYR OR VIAL) IVP ONE (11:15)
--- NOTE | 2018-08-19 11:46 | Cardiology Discharge Summary ---
Diagnosis/Chief Complaint Date of Admission 08/19/2018 Date of Discharge 08/19/2018 Admission Diagnosis PSVT Final/Discharge Diagnosis Noninducible tachycardia Chief Complaint/HPI Chief Complaint/HPI 22 year old male with symptomatic narrow complex tachycardia. The patient is planned for comprehensive EP study and ablation. Discharge Summary Procedures Comprehensive EP study. Dual AV irving physiology with single AV irving echoes. No inducible tachycardia or double echoes noted. No ablation done. Discharge Physical Examination Unremarkable. Hospital Course Was the Problem List Reviewed?: Yes Unremarkable. Pending Labs Laboratory Tests 08/19/18 07:30: White Blood Count 5.7, Red Blood Count 5.25, Hemoglobin 15.3, Hematocrit 45, Mean Corpuscular Volume 86, Mean Corpuscular Hemoglobin 29, Mean Corpuscular Hemoglobin Concent 34, Red Cell Distribution Width 13.3, Platelet Count 255, Mean Platelet Volume 9.7, Prothrombin Time 13.3, INR Comment 1.0, Activated Partial Thromboplast Time 30, Sodium Level 140, Potassium Level 3.5, Chloride Level 104, Carbon Dioxide Level 25, Anion Gap 11, Blood Urea Nitrogen 8, Creatinine 0.85, Estimat Glomerular Filtration Rate > 60, BUN/Creatinine Ratio 9 , Glucose Level 86, Calcium Level 9.4, Corrected Calcium , Total Bilirubin 1.0, Aspartate Amino Transf (AST/SGOT) 15, Alanine Aminotransferase (ALT/SGPT) 12, Alkaline Phosphatase 55, Total Protein 6.9, Albumin 4.8 Discussion & Recommendations Discussion Discussed at length with patient's family. Follow up appt.: Dr. Brunner in 2 weeks. Dicharge Diet: Regular Diet Activity as Tolerated: Yes Home Medications Reviewed patient Home Medication Reconciliation performed by pharmacy medication reconciliations system support technician and/or nursing. Patients Allergies have been reviewed. Discharge Home Medications: Reviewed and agree with Discharge Medication list on patient's Discharge Instruction sheet Condition at discharge Stable. Instructions to patient/family Dr Brunner in one to two weeks. Ella BRUNNER MD Aug 19, 2018 11:46
--- NOTE | 2018-08-19 12:01 | Anesthesia-General Post-Op ---
General Patient Condition Mental Status/LOC: Same as Preop Cardiovascular: Satisfactory Nausea/Vomiting: Absent Respiratory: Satisfactory Pain: Controlled Complications: Absent Post Op Complications Complications None Follow Up Care/Instructions Patient Instructions None needed. Anesthesia/Patient Condition Patient Condition Patient is doing well, no complaints, stable vital signs, no apparent adverse anesthesia problems. No complications reported per nursing. D/[place] [facility] [place]: Yes LULI BENAVIDES CRNA Aug 19, 2018 12:00
== END 2018-08-19 16:15 | disposition home or self-care (01) ==
LOC: CATH 07:10 → SDC 11:53 → CATH 16:15
PROVIDERS: ATTEND Internal Medicine Interventional Cardiology
DX: I47.1 Supraventricular tachycardia (principal); F17.210 Nicotine dependence, cigarettes, uncomplicated; Z79.899 Other long term (current) drug therapy
CPT/HCPCS: 36415; 80053; 85027; 85610; 85730; 87081; 93005

== ENCOUNTER → 2018-10-14 | Outpatient (CLI) | payer BC ==
[~2018-10-14] MED LIST changes: +TR1C15 TP
== END | disposition home or self-care (01) ==
LOC: PREOP 05:31
PROVIDERS: ATTEND Internal Medicine Interventional Cardiology
DX: Z01.818 Encounter for other preprocedural examination (principal)

== ENCOUNTER 2018-10-18 06:59 | Day surgery (SDC) | payer BC ==
[~2018-10-18] VITALS: Ht 177.8 cm; Wt 59.0 kg
[2018-10-18] VITALS (13 sets, daily range): BP systolic 106–139; BP diastolic 65–104
[2018-10-18] MEDS ORDERED: HEParin (CATH LAB) 1,000 ML IV ONE (07:03)
[2018-10-18] MEDS ORDERED: LIDOCAINE 1% INJ 20 ML 20 ML VIAL ONE (07:03)
[2018-10-18] MEDS ORDERED: NS IV 1000 ML 1,000 ML IV SCH (07:03)
--- OUTSIDE RECORDS SUMMARY | 2018-10-18 07:05 | XMS REPORT | Continuity of Care Document ---
Author Organization Unknown Address Unknown Allergies Active Description Code Type Severity Reaction Onset Reported/Identified Relationship to Patient Clinical Status Yes Sulfa (Sulfonamide Antibiotics) [id number] Drug Allergy Unknown N/A 2017 Medications There is no data. Problems Date Dx Coded Attending Type Code Diagnosis Diagnosed By 05/12/2015 LUKE NAGEL MD Ot I49.9 07/09/2015 MIKHAIL BOWLING GASTROENTEROLOGY MANAGER-STDNT Ot R00.0 08/18/2015 LUKE NAGEL MD Ot I49.9 08/18/2015 MIKHAIL BOWLING GASTROENTEROLOGY MANAGER-STDNT Ot R00.0 08/31/2015 LUKE NAGEL MD Ot I49.9 08/31/2015 MIKHAIL BOWLING GASTROENTEROLOGY MANAGER-STDNT Ot R00.0 07/30/2017 LUKE NAGEL MD Ot [...] 08/24/2017 RUPAL MENARD MD Ot Z79.899 OTHER OFFICE RN (CURRENT) DRUG THERAPY 08/24/2017 RUPAL MENARD MD Ot Z83.79 FAMILY HISTORY OF OTHER DISEASES OF THE 08/28/2017 RUPAL MENARD MD Ot K62.5 HEMORRHAGE OF ANUS AND RECTUM 08/28/2017 RUPAL MENARD MD Ot R00.0 TACHYCARDIA, UNSPECIFIED 08/28/2017 RUPAL MENARD MD Ot R19.7 DIARRHEA, UNSPECIFIED 08/28/2017 RUPAL MENARD MD Ot R63.4 ABNORMAL WEIGHT LOSS 08/28/2017 RUPAL MENARD MD Ot Z79.899 OTHER USP (CURRENT) DRUG THERAPY 08/28/2017 RUPAL MENARD MD [...] MD Ot R63.4 ABNORMAL WEIGHT LOSS 09/12/2017 RUPAL MENARD MD Ot Z79.899 OTHER USP (CURRENT) DRUG THERAPY 09/12/2017 RUPAL MENARD MD Ot Z83.79 FAMILY HISTORY OF OTHER DISEASES OF THE 08/09/2018 SHONA GRACIA, LUKE Jaramillo Ot I49.9 CARDIAC ARRHYTHMIA, UNSPECIFIED 08/09/2018 MIKHAIL BOWLING GASTROENTEROLOGY MANAGER-STDNT Ot R00.0 TACHYCARDIA, UNSPECIFIED 08/14/2018 Ella GAO MD Ot Z01.818 ENCOUNTER FOR OTHER PREPROCEDURAL EXAMIN 08/15/2018 Ella GAO MD Ot Z01.818 ENCOUNTER FOR OTHER PREPROCEDURAL EXAMIN 08/19/2018 Ella GAO MD Ot F17.210 NICOTINE DEPENDENCE, CIGARETTES, UNCOMPL 08/19/2018 SIMA GRACIA, Ella INTERIANO Ot I47.1 SUPRAVENTRICULAR TACHYCARDIA 08/19/2018 Ella GAO MD Ot Z79.899 OTHER OFFICE RN (CURRENT) DRUG THERAPY 08/21/2018 Ella GAO MD Ot F17.210 NICOTINE DEPENDENCE, CIGARETTES, UNCOMPL 08/21/2018 Ella GAO MD Ot I47.1 SUPRAVENTRICULAR TACHYCARDIA 08/21/2018 SIMA GRACIA M LAISHA Ot Z79.899 OTHER OFFICE RN (CURRENT) DRUG THERAPY 08/22/2018 Ella GAO MD Ot F17.210 NICOTINE DEPENDENCE, CIGARETTES, UNCOMPL 08/22/2018 Ella GAO MD Ot I47.1 SUPRAVENTRICULAR TACHYCARDIA 08/22/2018 Ella GAO MD Ot Z79.899 OTHER OFFICE RN (CURRENT) DRUG THERAPY Procedures There is no data. Results Test Result Range Automated blood complete blood count (hemogram) panel - 08/19/18 07:30 Blood leukocytes automated count (number/volume) 5.7 10*3/uL 4.3-11.0 Blood erythrocytes automated count (number/volume) 5.25 10*6/uL 4.35-5.85 Venous blood hemoglobin measurement (mass/volume) 15.3 g/dL 13.3-17.7 Blood hematocrit (volume fraction) 45 % 40-54 Automated erythrocyte mean corpuscular volume 86 [foz_us] 80-99 Automated erythrocyte mean corpuscular hemoglobin (mass per erythrocyte) 29 pg 25-34 Automated erythrocyte mean corpuscular hemoglobin concentration measurement ( mass/volume) 34 g/dL 32-36 Automated erythrocyte distribution width ratio 13.3 % 10.0-14.5 Automated blood platelet count (count/volume) 255 10*3/uL 130-400 Automated blood platelet mean volume measurement 9.7 [foz_us] 7.4-10.4 Comprehensive metabolic panel - 08/19/18 07:30 Serum or plasma sodium measurement (moles/volume) 140 mmol/L 135-145 Serum or plasma potassium measurement (moles/volume) 3.5 mmol/L 3.6-5.0 Serum or plasma chloride measurement (moles/volume) 104 mmol/L 98-107 Carbon dioxide 25 mmol/L 21-32 Serum or plasma anion gap determination (moles/volume) 11 mmol/L 5-14 Serum or plasma urea nitrogen measurement (mass/volume) 8 mg/dL 7-18 Serum or plasma creatinine measurement (mass/volume) 0.85 mg/dL 0.60-1.30 Serum or plasma urea nitrogen/creatinine mass ratio 9 NRG Serum or plasma creatinine measurement with calculation of estimated glomerular filtration rate > NRG Serum or plasma glucose measurement (mass/volume) 86 mg/dL 70-105 Serum or plasma calcium measurement (mass/volume) 9.4 mg/dL 8.5-10.1 Serum or plasma total bilirubin measurement (mass/volume) 1.0 mg/dL 0.1-1.0 Serum or plasma alkaline phosphatase measurement (enzymatic activity/volume) 55 U/L 40-136 Serum or plasma aspartate aminotransferase measurement (enzymatic activity/ volume) 15 U/L 5-34 Serum or plasma alanine aminotransferase measurement (enzymatic activity/volume ) 12 U/L 0-55 Serum or plasma protein measurement (mass/volume) 6.9 g/dL 6.4-8.2 Serum or plasma albumin measurement (mass/volume) 4.8 g/dL 3.2-4.5 PT panel in platelet poor plasma by coagulation assay - 08/19/18 07:30 Prothrombin time (PT) in platelet poor plasma by coagulation assay 13.3 s 12.2-14.7 INR in platelet poor plasma or blood by coagulation assay 1.0 0.8-1.4 Activated partial thromboplastin time (aPTT) in platelet poor plasma bycoagulation assay - 08/19/18 07:30 Activated partial thromboplastin time (aPTT) in platelet poor plasma bycoagulation assay 30 s 24-35 Methicillin resistant Staphylococcus aureus (MRSA) screening culture - 07:30 Methicillin resistant Staphylococcus aureus (MRSA) screening culture NEG NRG Encounters ACCT No. Visit Date/Time Discharge Status Pt. Type Provider Facility Loc./Unit Complaint [id number] 08/19/2018 07:10:00 08/19/2018 16:15:00 DIS Outpatient Ella GAO MD [facility] CATH SYMPTOMATIC PSVT [id number] 08/14/2018 05:35:00 08/14/2018 13:39:00 DIS Outpatient Ella GAO MD [facility] PREOP SYMPTOMATIC PSVT [id number] 08/12/2018 09:19:00 08/12/2018 23:59:59 CLS Outpatient Ella GAO MD [facility] CARD PAC [id number] 08/24/2017 09:01:00 08/24/2017 12:50:00 DIS Outpatient RUPAL MENARD MD [facility] ENDO DIARRHEA/WEIGHT LOSS/ RECTAL BLEEDING [id number] 08/23/2017 09:15:00 08/23/2017 09:44:00 DIS Outpatient RUPAL MENARD MD [facility] PREOP COLONOSCOPY [id number] 07/28/2017 14:49:00 07/28/2017 23:59:59 CLS Outpatient LUKE NAGEL MD [facility] LAB DIARRHEA [id number] 06/22/2015 11:35:00 06/22/2015 23:59:59 CLS Outpatient MIKHAIL BOWLING GASTROENTEROLOGY MANAGER-STDNT [facility] RAD TACHACARDIA [id number] 04/22/2015 08:01:00 04/22/2015 23:59:59 CLS Outpatient LUKE NAGEL MD [facility] CARD CARDIAC ARRHYTHMIA [id number] 11/04/2018 08:00:00 PEN Preadmit Ella GAO MD [facility] CATH SYMPTOMATIC PSVT
[2018-10-18] MEDS ORDERED: MIDAZOLAM 5 MG/5 ML (VERSED) VIAL ONE (07:08)
[2018-10-18] MEDS ORDERED: proPOfol 200 MG/20 ML (DIPRIVAN) VIAL IV ONE ×2 (07:08→10:14)
[2018-10-18] MEDS ORDERED: ISOPROTERENOL 0.2 MG/D5W 50 ML IV ONE (07:15)
[2018-10-18] MEDS ORDERED: METO-387 PO (07:22)
[2018-10-18 07:25] LABS: MEAN PLATELET VOLUME 9.9 FL (7.4-10.4); RED CELL DISTRIBUTION WIDTH 12.2 % (10.0-14.5); WHITE BLOOD COUNT 5.9 10^3/uL (4.3-11.0)
[2018-10-18 07:36] LABS: PROTHROMBIN TIME PATIENT 13.5 SEC (12.2-14.7)
[2018-10-18 07:45] LABS: ALANINE AMINOTRANSFERASE 13 U/L (0-55); ALBUMIN 4.7 GM/DL (3.2-4.5); ALKALINE PHOSPHATASE 73 U/L (40-136); BILIRUBIN,TOTAL 0.7 MG/DL (0.1-1.0); BUN/CREATININE RATIO 9; CALCIUM 9.9 MG/DL (8.5-10.1); CARBON DIOXIDE 23 MMOL/L (21-32); CHLORIDE 105 MMOL/L (98-107); CREATININE SERUM 0.91 MG/DL (0.60-1.30); GFR ESTIMATED > 60; GLUCOSE 91 MG/DL (70-105); POTASSIUM 3.7 MMOL/L (3.6-5.0); SODIUM 141 MMOL/L (135-145)
[2018-10-18] MEDS ORDERED: fentaNYL INJECTION 100 MCG/2 ML AMP ONE (08:09)
--- NOTE | 2018-10-18 10:58 | Cardiac Procedure Note-CS/ASA ---
Pre-Procedure Note Pre-Op Procedure Note H&P Reviewed The H&P was reviewed, patient examined and no changes noted. Date H&P Reviewed: October 18, 2018 Time H&P Reviewed: 08:00 Conscious Sedation Pre-Proced Time 08:00 ASA Score 3 For ASA 3 and 4: Consider anesthesia and medical clearance. Also, for patients with a history of failed moderate sedation consider anesthesia. Airway Lungs Heart ASA score ASA 1: a normal healthy patient ASA 2: a patient with a mild systemic disease (mid diabetes, controlled hypertension, obesity ASA 3: a patient with a severe systemic disease that limits activity (angina , COPD, prior Myocardial infarction) ASA 4: a patient with an incapacitating disease that is a constant threat to life (CHF, renal failure) ASA 5: a moribund patient not expected to survive 24 hrs. (ruptured aneurysm) ASA 6: a declared brain- patient whose organs are being harvested. For emergent operations, add the letter E after the classification Mallampati Classification Grade 1 Sedation Plan Analgesia, Amnesia, Plan communicated to team members, Discussed options with patient/fam, Discussed risks with patient/fam The patient is an appropriate candidate to undergo the planned procedure, sedation, and anesthesia. The patient immediately re-assessed prior to indication. Ella GAO MD October 18, 2018 10:58
[2018-10-18] MEDS ORDERED: PATIENT MAY USE OWN MEDS, ALL PO SCH (11:00)
--- NOTE | 2018-10-18 11:01 | History & Physicial-Cardiolgy ---
HPI-Cardiology Cardiology Consultation: Date of Consultation 10/18/18 Date of Admission Attending Physician Ella Brunner MD Admitting Physician Aviva,Local Physician Consulting Physician Ella BRUNNER MD HPI: Time Seen by a Provider: 08:00 Chief Complaint: Palpitations This is a 22-year-old gentleman with frequent symptomatic palpitations. Previous EP study demonstrated dual AV irving physiology with single echoes however we could not induce tachycardia or dual echoes. Therefore no ablation was performed. That particular EP study was done with general anesthesia. The patient continued to have symptomatic palpitations. Therefore the decision was to repeat the EP study and possible ablation under light anesthesia. Review of Systems-Cardiology Review of Systems Constitutional: As described under HPI; No As described under HPI, No no symptoms reported, No chills, No fever, No lightheadedness Eyes: No As described under HPI, No no symptoms reported, No blindness, No blurred vision, No contact lenses, No drainage, No decreased acuity, No foreign body sensation, No pain, No vision change Ears/Nose/Throat: No As described under HPI, No no symptoms reported, No chronic hearing loss, No ear discharge, No ear pain, No nasal drainage, No ulcerations Respiratory: No no symptoms reported; As described under HPI; No As described under HPI, No cough, No orthopnea, No shortness of breath, No SOB with excertion Cardiovascular: No no symptoms reported; As described under HPI; No As described under HPI, No chest pain, No edema, No irregular heart rate, No lightheadedness; palpitations Gastrointestinal: No no symptoms reported, No As described under HPI, No abdomen distended, No abdominal pain, No blood streaked bowels, No constipation , No diarrhea, No nausea, No vomiting, No stool coloration changes Genitourinary: No As described under HPI, No burning, No dysuria, No discharge , No frequency, No flank pain, No hematuria, No urgency Skin: No rash, No skin related problems, No ulcerations Psychiatric/Neurological: No anxiety, No depression, No seizure, No focal weakness, No syncope Hematologic: No bleeding abnormalities TFH-Daworz-Mhrsio Hx Patient Social History Alcohol Use: Denies Use Recreational Drug Use: No Type Used: Cigars 2nd Hand Smoke Exposure: No Recent Foreign Travel: No Past Medical History PMH As described under Assessment. Allergies and Home Medications Allergies Coded Allergies: Sulfa (Sulfonamide Antibiotics) (Verified Allergy, Unknown, 08/23/17) Home Medications Metoprolol Succinate 25 Mg Tab.er.24h, 25 MG PO DAILY, (Reported) Triamcinolone Acet 15 Gm Cr, 15 GM TP PRN PRN for ITCHING, (Reported) Patient Home Medication List Home Medication List Reviewed: Yes Physical Exam-Cardiology Physical Exam Vital Signs/I&O 10/18/18 07:03 Temp 98.6 Pulse 75 Resp 16 B/P (MAP) 139/104 (116) Pulse Ox 98 O2 Delivery Room Air Capillary Refill : Constitutional: appears stated age, AAO x 3; No apparent distress; well- developed, well-nourished HEENT: PERRL; No normal ENT inspection, No TMs normal, No pharynx normal, No scleral icterus (R), No scleral icterus (L), No pale conjunctivae (R), No pale conjunctivae (L), No photophobia, No TM abnormal (R), No TM abnormal (L), No pharyngeal erythema, No tonsillar exudate, No other, No discharge, No EOMI; hearing is well preserved; No hard of hearing; oral hygience is good; No ulceration, No xanthelasmas are seen Neck: No non-tender, No full range of motion, No supple, No normal inspection, No carotid bruit, No limited range of motion, No lymphadenopathy (R), No lymphadenopathy (L), No tender lateral, No tender midline, No thyromegaly, No other; carotid pulses are 2 + bilaterally; No with good upstrokes Respiratory: chest is bilaterally symmetric, lungs clear to auscultation Cardiovascular: regular rate-rhythm; No irregularly irregular, No extra beats, No parasternal heave is noted, No JVD, No edema, No bradycardia, No tachycardia , No point of maximal impulse, No cardiac thrills are palpable; S1 and S2; No gallop/S3, No gallop/S4, No diastolic murmur, No systolic murmur, No friction rub, No click, No other Gastrointestinal: No tender, No soft, No round, No distended, No pulsatile mass , No organomegaly, No guarding, No rebound, No tenderness, No hernia, No mass, No audible bowel sounds, No abnormal bowel sounds, No abdominal bruits, No spleenomegaly, No other Rectal: deferred Extremities: No normal range of motion, No non-tender, No normal inspection, No pedal edema, No calf tenderness, No normal capillary refill, No pelvis stable , No calf tenderness, No inflammation, No pedal edema, No slow capillary refill , No swelling, No other, No abrasion, No clubbing, No cyanosis, No ecchymosis, No laceration, No no lower extremity edema bilateral, No significant edema, No tenderness, No wound Neurologic/Psychiatric: no motor/sensory deficits, alert, normal mood/affect, oriented x 3, power is 5/5 both on sides Skin: No normal color, No warm/dry, No cyanosis, No cool, No diaphoresis, No damp, No ecchymosis, No jaundice, No mottled, No pallor, No rash, No tattoos/ piercings, No ulcerations, No rash on exposed areas, No ulcerations on exposed areas, No other Data Review Labs Laboratory Tests 10/18/18 07:19: White Blood Count 5.9, Red Blood Count 5.54, Hemoglobin 16.0, Hematocrit 47, Mean Corpuscular Volume 85, Mean Corpuscular Hemoglobin 29, Mean Corpuscular Hemoglobin Concent 34, Red Cell Distribution Width 12.2, Platelet Count 236, Mean Platelet Volume 9.9, Prothrombin Time 13.5, INR Comment 1.0, Activated Partial Thromboplast Time 29, Sodium Level 141, Potassium Level 3.7, Chloride Level 105, Carbon Dioxide Level 23, Anion Gap 13, Blood Urea Nitrogen 8, Creatinine 0.91, Estimat Glomerular Filtration Rate > 60, BUN/Creatinine Ratio 9 , Glucose Level 91, Calcium Level 9.9, Corrected Calcium , Total Bilirubin 0.7, Aspartate Amino Transf (AST/SGOT) 12, Alanine Aminotransferase (ALT/SGPT) 13, Alkaline Phosphatase 73, Total Protein 7.0, Albumin 4.7H A/P-Cardiology Assessment/Admission Diagnosis PSVT Admission Status: Observation Plan PSVT ablation is recommended. Ella BRUNNER MD October 18, 2018 11:01
--- NOTE | 2018-10-18 11:13 | Electrophysiology Procedure ---
EP Procedure DATE OF SERVICE:10/18/18 REFERRING PHYSICIAN: Dr. Viviana Kitchen. CARDIAC GLASS NOVELTY MAKER: David Brunner MD, [facility], [facility]. INDICATION: PSVT PREOPERATIVE DIAGNOSIS: PSVT POSTOPERATIVE DIAGNOSES: Typical AVNRT ablation. HISTORY: This is a 22-year-old male who has symptomatic palpitations. He was brought to the EP lab previously, dual AV irving physiology was demonstrated with single echoes however dual echoes or tachycardia was not induced. That particular EP study was done on general anesthesia. The patient continued to have symptomatic palpitations. Therefore the decision was to perform EP study under MAC. The patient is planned for comprehensive EP study and ablation. PROCEDURE PERFORMED: 1. Comprehensive EP study with induction. 2. Fluoroscopy. 3. CS pacing and recording. 4. Drug infusion. 5. Ablation of typical AVNRT. 6. Comprehensive 3D mapping with the carto system. COMPLICATION: None. ESTIMATED BLOOD LOSS: 10 mL. CONTRAST USED: None. FLUOROSCOPY TIME: 8 minutes. FLUOROSCOPY DOSE: 82 MGY. SPECIMENS: None. ANESTHESIA: Done by our anesthesia colleagues. ANTICOAGULATION: None PROCEDURE IN DETAIL: After informed consent was taken, the patient was brought to the EP lab. Anesthesia was provided by our anesthesia colleagues. The patient was draped and prepped in the usual sterile fashion. The patient presented to the EP lab in sinus rhythm. Access was gained in the right femoral vein with a 6-Armenian and an 8-Armenian sheath. Left access in left femoral vein was gained with 5-Armenian and 6-Armenian sheath respectively. High right atrial catheter was an Jeannette catheter, right ventricular catheter was placed, his catheter and the CS catheter were also placed. A comprehensive EP study was done including a CS pacing.Left atrial pacing was done with distal CS electrodes for pacing and recording. A 3D electroanatomic mapping was donewith the carto system. EP study demonstrated dual AV irving physiology with single echoes. Isuprel was given which resulted in dual echoes and brief tachycardia. Diagnoses was typical AVNRT. 3-D mapping was performed to identify the slow pathway by voltage criteria . Ablation was performed just outside the coronary sinus ostium.Numerous Junctional beats were noted. Consistent AV conduction was demonstrated. Post-ablation repeat EP study did not demonstrate dual AV irving physiology. No echoes were demonstrated. Isuprel was given at the same dose, no Dual echoes or tachycardia was induced. The patienttolerated the procedure well and did not have any complication. The patientleft the lab in sinus rhythm. Total ablation time was 2 minutes and 46 seconds. MEASUREMENTS/EP STUDY: AH interval 62 ms, HV interval 50 ms, AV Wenckebach when pacing at 390 ms. Retrograde VA conduction at cycle length 200 ms. Fast pathway ERP 600/380 ms, slow pathway ERP 600/300 ms. Ventricular ERP was 600/230 ms. Post-ablation, Fast pathway ERP 600/250 ms. Post-ablation, Fast pathway ERP on Isuprel infusion was 400/190 ms. Post-ablation, Fast pathway ERP on Isuprel infusion was 400/200 ms. PLAN: The patient will be observed overnight and will be discharged home tomorrow with precise followup instructions. David Brunner MD, [facility], [facility] Cardiac Electrophysiology Ella BRUNNER MD October 18, 2018 11:13
[2018-10-18] MEDS ORDERED: ONDANSETRON 4 MG/2 ML (SDV) Z0FRAN IVP PRN (11:30)
[2018-10-18] MEDS ORDERED: morphine INJ 10 MG/ML 1ML (SYR OR VIAL) IVP ONE (11:30)
[2018-10-18] MEDS: NS IV 1000 ML 1,000 ML IV SCH ×2 (11:58→21:04)
[2018-10-18] MEDS ORDERED: ACETAMINOPHEN 325 MG TABLET PO PRN (19:45)
[2018-10-19] VITALS: BP 117/73
[2018-10-19 05:38] VITALS: BP 107/60
[2018-10-19] MEDS: NS IV 1000 ML 1,000 ML IV SCH (07:11)
[2018-10-19 08:00] VITALS: BP 105/65
--- NOTE | 2018-10-19 08:29 | Anesthesia-General Post-Op ---
General Patient Condition Mental Status/LOC: Same as Preop Cardiovascular: Satisfactory Nausea/Vomiting: Absent Respiratory: Satisfactory Pain: Controlled Complications: Absent Post Op Complications Complications None Follow Up Care/Instructions Patient Instructions None needed. Anesthesia/Patient Condition Patient Condition Patient is doing well, no complaints, stable vital signs, no apparent adverse anesthesia problems. No complications reported per nursing. RIMA BARBOUR CRNA October 19, 2018 08:29
--- NOTE | 2018-10-19 12:54 | Cardiology Discharge Summary ---
Diagnosis/Chief Complaint Date of Admission 10/18/2018 Date of Discharge 10/19/2018 Admission Diagnosis PSVT Final/Discharge Diagnosis Successful AVNRT ablation Chief Complaint/HPI Chief Complaint/HPI This is a 22-year-old gentleman with frequent symptomatic palpitations. Previous EP study demonstrated dual AV irving physiology with single echoes however we could not induce tachycardia or dual echoes. Therefore no ablation was performed. That particular EP study was done with general anesthesia. The patient continued to have symptomatic palpitations. Therefore the decision was to repeat the EP study and possible ablation under light anesthesia. Discharge Summary Procedures EP study demonstrated dual AV irving physiology with dual echoes and brief tachycardia which shows typical AVNRT. Successful slow pathway ablation done. Post-ablation EP study did not demonstrate dual AV irving physiology and no dual echoes or tachycardia on Isuprel infusion. Discharge Physical Examination Stable. Hospital Course Was the Problem List Reviewed?: Yes Unremarkable. Discussion & Recommendations Discussion Discharge instructions discussed at length with the patient. Patient will continue metoprolol since the patient has history of inappropriate sinus tachycardia, pots. Patient can go back to normal activity in 7 days. Follow up appt.: Dr. Brunner in 8 weeks. Dicharge Diet: Regular Diet Activity as Tolerated: Yes Home Medications Reviewed patient Home Medication Reconciliation performed by pharmacy medication reconciliations in tube conversion technician and/or nursing. Patients Allergies have been reviewed. Discharge Home Medications: Reviewed and agree with Discharge Medication list on patient's Discharge Instruction sheet Condition at discharge Stable. Instructions to patient/family Discussed with the patient and family. Clinical Quality Measures DVT/VTE Risk/Contraindication: Risk Factor Score Per Nursin RFS Level Per Nursing on Admit: 1=Low/No VTE PPX Ella BRUNNER MD October 19, 2018 12:54
--- NOTE | 2018-10-19 12:55 | Discharge Inst-Post CATH ---
Discharge Inst-CATH/EP Post Cardiac Cath/EP D/C Inst Follow Up/Plan Dr. Brunner in 8 weeks. <b>CARDIAC CATH/EP PROCEDURE DISCHARGE INSTRUCTIONS</b> Cardiac Rehab Please be expecting a follow up call from Cardiac Rehab within in one week. ACTIVITY * Go Home directly and rest. * Limit activity of the leg (or wrist if it was used) for 7 days including aerobics, swimming, jogging, bicycling, etc. * Restrict stair-climbing for 7 days if possible, if not, climb up with your non -cath leg, then bring together on the same step. * Avoid lifting, pushing, pulling or excessive movement of the affected extremity for 7 days. * Customary sexual activity may be resumed after 2 days-use caution not to use a position that strains or causes pain to the affected extremity. * No driving for 24 hours. * NO SMOKING. * Avoid straining for bowel movements for 7 days. * Gentle walking on level ground is allowed. * Returning to work will depend on the type of procedure and the results. Your doctor will discuss this with you. CALL YOUR DOCTOR FOR ANY OF THE FOLLOWING: *If bleeding from the puncture site occurs- Apply gentle pressure to site with clean cloth and call your doctor or EMS. * If a knot or lump forms under the skin, increases in size, or causes pain. * If bruising appears to be worsening or moving further down your leg instead of disappearing. * Temperature above 101 F. CARE OF YOUR GROIN INCISION; * Bruising or purple discoloration of the skin near the puncture site is common. * You may shower only, no bathtub bathing for 5 days. Be careful to avoid slipping as your leg may feel stiff. * If a closure device was used on your femoral artery, please see the attached guide regarding care of the device and your leg. * Leave dressing on FOR 24 hours. CARE OF YOUR WRIST INCISION; * Bruising or purple discoloration of the skin near the puncture site is common. * You may shower. * DO NOT submerge wrist. * Leave dressing on FOR 24 hours. Ella BRUNNER MD October 19, 2018 12:55
== END 2018-10-19 12:24 | disposition home or self-care (01) ==
LOC: CATH 06:59 → ICU 12:14 → CATH 10-19 12:24
PROVIDERS: ATTEND Internal Medicine Interventional Cardiology
DX: I47.1 Supraventricular tachycardia (principal); F17.290 Nicotine dependence, other tobacco product, uncomplicated; Z79.899 Other long term (current) drug therapy
CPT/HCPCS: 36415; 80053; 85027; 85610; 85730; 87081; 93005; 93613; 93621; 93623; 93653